=== PATIENT | female | born 1975 | race Asian ===

== ENCOUNTER 2019-01-23 17:05 | Emergency (ER) | payer OTHER ==
[~2019-01-23] VITALS: Ht 167.6 cm; Wt 93.0 kg
[2019-01-23 18:25] VITALS: BP 136/81; TEMP 98
== END 2019-01-23 18:27 | disposition home or self-care (01) ==
LOC: ED 17:05
DX: S63.502A Unspecified sprain of left wrist, initial encounter (principal); X50.1XXA Overexertion from prolonged static or awkward postures, initial encounter; Y93.F9 Activity, other caregiving; Y92.239 Unspecified place in hospital as the place of occurrence of the external cause
CPT/HCPCS: 99282; L3908

== ENCOUNTER 2020-05-27 11:48 | Outpatient (CLI) | payer OTHER | END 2020-05-27 20:31 | disposition home or self-care (01) | LOC: RAD 11:48 | DX: M54.9 Dorsalgia, unspecified (principal) ==

== ENCOUNTER 2022-02-03 08:07 | Outpatient (CLI) | payer OTHER | END 2022-02-03 18:59 | disposition home or self-care (01) | LOC: RAD 08:07 | PROVIDERS: ATTEND Nurse Practitioner Family | DX: M54.41 Lumbago with sciatica, right side (principal) ==